=== PATIENT | female | born 1970 | race Caucasian/White ===

== ENCOUNTER 2017-07-01 09:55 | Emergency (ER) | payer MEDICAID ==
[~2017-07-01] VITALS: Ht 170.2 cm; Wt 109.8 kg
[2017-07-01 09:59] VITALS: Ht 170.2 cm; Wt 109.8 kg
[2017-07-01 13:22] VITALS: BP 154/78
== END 2017-07-01 13:22 | disposition home or self-care (01) ==
LOC: ED 09:55
DX: M79.604 Pain in right leg (principal)
CPT/HCPCS: J1885